=== PATIENT | male | born 1955 | race Caucasian/White ===

== ENCOUNTER 2020-11-29 10:50 | Emergency (ER) | payer SELFPAY ==
[2020-11-29] MEDS ORDERED: ROBAXIN750 MG PO (14:30)
[2020-11-29] MEDS ORDERED: NAPROXEN500 MG PO (14:30)
== END 2020-11-29 14:56 | disposition home or self-care (01) ==
LOC: FER 10:50
DX: S43.401A Unspecified sprain of right shoulder joint, initial encounter (principal); S63.501A Unspecified sprain of right wrist, initial encounter; S53.401A Unspecified sprain of right elbow, initial encounter; S16.1XXA Strain of muscle, fascia and tendon at neck level, initial encounter; S39.012A Strain of muscle, fascia and tendon of lower back, initial encounter; Z79.84 Long term (current) use of oral hypoglycemic drugs; V49.40XA Driver injured in collision with unspecified motor vehicles in traffic accident, initial encounter; Y92.410 Unspecified street and highway as the place of occurrence of the external cause
CPT/HCPCS: 72125; 72128; 72131; 73030; 73080; 73110